=== PATIENT | male | born 1980 | race Caucasian/White ===

== ENCOUNTER 2018-05-10 21:30 | Emergency (ER) | payer BC ==
[~2018-05-10] VITALS: Ht 190.5 cm; Wt 86.2 kg
[2018-05-10] MEDS ORDERED: CHANTIX1 EACH PO (22:51)
[2018-05-10] MEDS ORDERED: PREDNISONE 10 M10 MG PO (22:51)
[2018-05-10] MEDS ORDERED: VENTOLIN HFA 1818 GM INH (22:51)
[2018-05-10] MEDS ORDERED: DOXYCYCLINE 10100 MG PO (22:51)
[2018-05-10 23:13] VITALS: BP 115/75
== END 2018-05-10 23:16 | disposition home or self-care (01) ==
LOC: M.ERS 21:30
DX: J40 Bronchitis, not specified as acute or chronic (principal); F17.210 Nicotine dependence, cigarettes, uncomplicated; Z88.8 Allergy status to other drugs, medicaments and biological substances; Z90.49 Acquired absence of other specified parts of digestive tract